=== PATIENT | female | born 1985 | race Caucasian/White ===

== ENCOUNTER 2020-06-06 07:53 | Emergency (ER) | payer MEDICAID ==
[~2020-06-06] VITALS: Ht 170.2 cm; Wt 100.3 kg
--- NOTE | 2020-06-06 08:06 | NUR ---
"I haven't done drugs in a while and last night I did meth with a clean needle but I guess I missed."
--- NOTE | 2020-06-06 08:32 | NUR ---
Xray to bedside. Lab currently at bedside working to obtain blood.
[2020-06-06 08:49] LABS: BASOPHILS % (AUTO) 0 % (0-1); EOSINOPHILS % (AUTO) 1 % (1-7); LYMPHOCYTES % (AUTO) 13 % (22-44); MEAN CORPUSCULAR HEMOGLOBIN 28.5 pg (27.0-34.8); MEAN CORPUSCULAR HGB CONC 33.2 g/dL (32.4-35.8); MEAN PLATELET VOLUME 9.7 fL (7.4-10.4); MONOCYTES % (AUTO) 6 % (2-9); NEUTROPHILS % (AUTO) 80 % (42-75); PLATELET COUNT 198 x10^3/uL (130-400); RED CELL DISTRIBUTION WIDTH 13.6 % (9.6-15.2)
[2020-06-06 08:52] LABS: MD NO
[2020-06-06 08:57] LABS: ALBUMIN 3.3 g/dL (3.4-5.0); ANION GAP 7 mmol/L (5-15); CALCIUM 8.9 mg/dL (8.5-10.1); CHLORIDE 107 mmol/L (98-107); CREATININE 0.81 mg/dL (0.55-1.02)
[2020-06-06 09:19] VITALS: BP 110/68
--- NOTE | 2020-06-06 09:28 | NUR ---
Note lucyone in EDM - 06/06/20 at 0932 by YVES L chest mass x3 day, worse over the last 2, associated pain. Hx of the same on right arm. Currently taking sulfa and cephalexin. Hx DM.
--- NOTE | 2020-06-06 09:33 | NUR ---
Previous note charted on wrong pt.
[2020-06-06] MEDS ORDERED: LIDOCAINE-MPF 1%, 5ML INFIL ONE (10:00)
[2020-06-06] MEDS ORDERED: LIDOCAINE-MPF 1%, 5ML ONE (10:08)
--- NOTE | 2020-06-06 10:42 | NUR ---
Pt's wound cleaned and dressed prior to d/c by Jose CALDERON PA.
== END 2020-06-06 10:43 | disposition home or self-care (01) ==
LOC: ED 08:49
DX: L02.413 Cutaneous abscess of right upper limb (principal); F15.129 Other stimulant abuse with intoxication, unspecified
CPT/HCPCS: 10060; 36415; 80048; 82040; 85025; 99284